=== PATIENT | male | born 1970 | race Hispanic/Latino ===

== ENCOUNTER 2019-10-17 13:35 | Emergency (ER) | payer OTHER ==
[2019-10-17] MEDS ORDERED: TETANUS/DIPHTHERIA TOXOID [ADULT] 0.5 ML VIAL IM ONE (15:47)
[2019-10-17] MEDS ORDERED: LIDOCAINE HCL 1% 20 ML VIAL ONE (16:18)
== END 2019-10-17 17:29 | disposition home or self-care (01) ==
LOC: EDH 13:35
DX: S61.217A Laceration without foreign body of left little finger without damage to nail, initial encounter (principal); I10 Essential (primary) hypertension; Z98.890 Other specified postprocedural states; X58.XXXA Exposure to other specified factors, initial encounter; Y93.89 Activity, other specified; Y92.098 Other place in other non-institutional residence as the place of occurrence of the external cause; Y99.8 Other external cause status
CPT/HCPCS: 90471; 90714